=== PATIENT | female | born 1940 | race Caucasian/White ===

== ENCOUNTER → 2017-12-26 | Day surgery (SDC) | payer MEDICARE ==
[2017-12-22 08:37] LABS: BASO % 0.7 % (0.0-1.0); EOS # 0.1 10*3/uL (0.0-0.4); EOS % 2.1 % (1.0-4.0); HEMATOCRIT 41.6 % (37.0-47.0); HEMOGLOBIN 13.5 g/dl (12.0-16.0); LYMPH % 35.4 % (27.0-41.0); MEAN CELL VOLUME 97.9 fl (81.0-99.0); MEAN CORPUSCULAR HGB 31.8 pg (27.0-31.0); MEAN CORPUSCULAR HGB CONC 32.5 g/dl (33.0-37.0); MEAN PLATELET VOLUME 9.1 fl (9.6-12.3); MONO # 0.5 10*3/uL (0.1-1.0); MONO % 9.1 % (3.0-9.0); NEUT % 52.4 % (47.0-73.0); PLATELET COUNT AUTOMATED 210 10*3/uL (130-400); RED BLOOD COUNT 4.25 10*6/uL (4.10-5.10); RED CELL DISTRI WIDTH 14.4 % (0-14.5); WHITE BLOOD COUNT 5.7 10*3/uL (4.8-10.8)
[2017-12-22 08:51] LABS: CREATININE 1.08 mg/dL (0.55-1.02); POTASSIUM 4.5 mmol/L (3.5-5.1)
[2017-12-22 09:15] LABS: INTERNATIONAL NORM RATIO 0.9 (2.0-3.5)
[~2017-12-26] VITALS: Ht 157.4 cm; Wt 59.0 kg
[~2017-12-26] MED LIST: ASPIRIN81 M1 PO
--- NOTE | ~2017-12-26 | PROC NOTE ---
[place], [place] PROCEDURE NOTE NAME: KEMAL BAE UNIT #: [id number] ROOM: DOCTOR: JAYCE MATOS MD BIRTHDATE: [birth year] DOS: 12/26/2017 PREOPERATIVE DIAGNOSES: Lower gastrointestinal bleed, history of colonic polyps in the past. POSTOPERATIVE DIAGNOSES: Sigmoid diverticulosis, internal hemorrhoids, external hemorrhoids. PROCEDURE: Flexible sigmoidoscopy. ENDOSCOPIST: Jayce aMtos MD AUTO INSPECTION SPECIALIST: [id number]. ANESTHESIA: MAC. INDICATIONS: This is a 77-year-old lady who has a history of recent lower GI bleeding as well as history of polypectomy done in the past who is here for the above-mentioned procedure. The procedure and its complications were explained to the patient in detail preoperatively. Complications that were discussed included but were not limited to, bleeding, colon perforation, missed lesions and prolonged pain. She agreed to proceed. DESCRIPTION OF PROCEDURE: After identifying the patient, the patient was brought to the endoscopy suite and laid in the left lateral position. After IV sedation was administered, a digital rectal exam was performed. There was no blood on the examining finger. However, I did see early external hemorrhoids. An adult colonoscope was now introduced into the anal canal and advanced sequentially into the rectum and into the sigmoid colon up to 35 cm from the anal verge. Despite multiple attempts in the left lateral and the supine position, the scope could not be passed beyond this point because of colon tortuosity and also the presence of multiple diverticula that were visualized. There were no obvious polyps that could be seen. There was no bleeding that could be seen and the internal hemorrhoids itself were not bleeding. At this point, the scope was withdrawn and these findings were confirmed. The patient was brought back to the recovery room in stable fashion. Based on these findings, the patient is recommended to keep a close eye on her stools and to come back to the Emergency Room or call to make an appointment in the next 2 weeks for a followup visit in order to discuss further options. These findings were discussed with the patient's family. [place], [place] PROCEDURE NOTE NAME: KEMAL BAE UNIT #: [id number] ROOM: DOCTOR: JAYCE MATOS MD BIRTHDATE: [birth year] Jayce Matos MD CM:ELLIOT:PROCEDURE NOTE [id number] JAYCE MATOS MD
[2017-12-26 08:30] VITALS: BP 140/64
[2017-12-26 10:03] VITALS: BP 152/76
[2017-12-26 10:18] VITALS: BP 147/54
[2017-12-26 10:33] VITALS: BP 168/76
== END | disposition home or self-care (01) ==
LOC: SDC 12-24 08:00
PROVIDERS: Surgery
DX: K57.30 Diverticulosis of large intestine without perforation or abscess without bleeding (principal); K64.8 Other hemorrhoids; K64.4 Residual hemorrhoidal skin tags; K63.89 Other specified diseases of intestine; Z98.890 Other specified postprocedural states; Z90.710 Acquired absence of both cervix and uterus; Z85.3 Personal history of malignant neoplasm of breast; Z88.0 Allergy status to penicillin; Z79.82 Long term (current) use of aspirin; Z86.010 Personal history of colon polyps

== ENCOUNTER → 2018-10-27 | Outpatient (CLI) | payer MEDICARE | END | disposition home or self-care (01) | LOC: RAD 10:52 | DX: K44.9 Diaphragmatic hernia without obstruction or gangrene (principal) ==

== ENCOUNTER → 2018-11-11 | Outpatient (CLI) | payer MEDICARE | END | disposition home or self-care (01) | LOC: MAMMO 10-29 09:30 | DX: C50.912 Malignant neoplasm of unspecified site of left female breast (principal) ==

== ENCOUNTER 2019-11-28 07:32 | Emergency (ER) | payer MEDICARE ==
[~2019-11-28] VITALS: Ht 160 cm; Wt 56.7 kg
[2019-11-28 08:52] LABS: BASO % 0.5 % (0.0-1.0); EOS # 0.1 10*3/uL (0.0-0.4); EOS % 1.3 % (1.0-4.0); HEMOGLOBIN 13.7 g/dl (12.0-16.0); LYMPH # 1.9 10*3/uL (1.3-4.4); LYMPH % 30.9 % (27.0-41.0); MEAN CELL VOLUME 97.7 fl (81.0-99.0); MEAN CORPUSCULAR HGB 31.1 pg (27.0-31.0); MEAN CORPUSCULAR HGB CONC 31.9 g/dl (33.0-37.0); MEAN PLATELET VOLUME 9.6 fl (9.6-12.3); MONO # 0.4 10*3/uL (0.1-1.0); MONO % 6.6 % (3.0-9.0); NEUT # 3.8 10*3/uL (2.3-7.9); NEUT % 60.5 % (47.0-73.0); PLATELET COUNT AUTOMATED 280 10*3/uL (130-400); RED CELL DISTRI WIDTH 13.7 % (0-14.5); WHITE BLOOD COUNT 6.2 10*3/uL (4.8-10.8)
[2019-11-28 09:03] LABS: ACT PARTIAL THROMBO TIME 24.9 SECONDS (20.0-32.1); INTERNATIONAL NORM RATIO 0.9 (2.0-3.5)
[2019-11-28 09:08] LABS: BUN 21 mg/dl (7-24); CHLORIDE 109 mmol/L (98-107); CREATININE 1.12 mg/dL (0.55-1.02); POTASSIUM 4.7 mmol/L (3.5-5.1); SODIUM 140 mmol/L (136-145)
[2019-11-28 09:11] LABS: TROPONIN I < 0.015 ng/ml (<0.045)
[2019-11-28] MEDS ORDERED: TYLENOL325 M1 PO (09:57)
== END 2019-11-28 10:06 | disposition home or self-care (01) ==
LOC: ED 07:32
PROVIDERS: Emergency Medicine
DX: I70.90 Unspecified atherosclerosis (principal); M46.82 Other specified inflammatory spondylopathies, cervical region; R51 Headache; R79.1 Abnormal coagulation profile; Z88.0 Allergy status to penicillin

== ENCOUNTER 2022-11-13 18:15 | Emergency (ER) | payer MEDICARE ==
[~2022-11-13] VITALS: Ht 160 cm; Wt 59.0 kg
[~2022-11-13 18:15] MED LIST changes: +TYLENOL325 M1 PO
== END 2022-11-13 20:42 | disposition home or self-care (01) ==
LOC: ED 18:15
DX: S09.90XA Unspecified injury of head, initial encounter (principal); Z88.0 Allergy status to penicillin; Z90.710 Acquired absence of both cervix and uterus; W22.8XXA Striking against or struck by other objects, initial encounter; Y93.89 Activity, other specified; Y92.89 Other specified places as the place of occurrence of the external cause; Y99.8 Other external cause status